=== PATIENT | female | born 1930 | race African-American/Black ===

== ENCOUNTER 2017-08-23 14:44 | Emergency (ER) | payer MEDICARE ==
--- NOTE | 2017-08-23 15:11 | RAD ---
SINGLE VIEW OF CHEST: Date: 08/23/17 COMPARISON: 07/20/11. HISTORY: Chest pain. FINDINGS: Single view of the chest shows normal sized cardiomediastinal silhouette. There is no evidence of con solidation, mass, or pleural effusion. Surgical clips are seen projecting over the right upper chest. IMPRESSION: No evidence of acute cardiopulmonary disease. POS: [facility]
[2017-08-23 15:13] LABS: PTT 23.7 SEC (22.9-36.1); Prothrombin Time 12.9 SEC (12.0-14.7)
[2017-08-23 15:22] LABS: ALT (SGPT) 18 U/L (8-55); AST (SGOT) 26 U/L (5-34); Alkaline Phosphatase 49 U/L (40-150); Anion Gap 17 mmol/L (10-20); BUN (Urea Nitrogen) 17 mg/dL (9.8-20.1); Bilirubin, Total 0.5 mg/dL (0.2-1.2); Calc. Creatinine Clearance 0 mL/min (70-130); Calcium 9.3 mg/dL (7.8-10.44); Carbon Dioxide 26 mmol/L (23-31); Chloride 101 mmol/L (98-107); Estimated GFR-MDRD 52; Globulin 3.4 g/dL (2.4-3.5); Glucose 111 mg/dL (83-110); Potassium 4.9 mmol/L (3.5-5.1); Protein, Total 7.4 g/dL (6.0-8.3); Sodium 139 mmol/L (136-145)
[2017-08-23 15:23] LABS: CKMB 1.6 ng/mL (0-6.6); Troponin I 0.017 ng/mL (< 0.028)
[2017-08-23 15:34] LABS: Mean Corpuscular HGB CONC 31.4 g/dL (32.0-36.0); Mean Corpuscular Hemoglobin 30.4 pg (27.0-31.0); Mean Corpuscular Volume 96.9 fl (81.0-99.0); Mean Platelet Volume 7.4 fL (7.4-10.4); Platelet Count 178 thou/uL (130-400); RBC Distribution Width 14.7 % (11.5-14.5); Red Blood Cell (RBC) Count 4.26 mill/uL (4.20-5.40); White Blood Cell (WBC) Count 6.4 thou/uL (4.8-10.8)
[2017-08-23 15:35] LABS: MDiff Complete? YES; Manual Diff?? YES
[2017-08-23 15:36] LABS: Eosinophils 1 % (0-10); Lymphocytes 9 % (21-51); Monocytes 9 % (0-10); Neutrophil 58 % (42-75); Reactive Lymphocytes 23 % (0-10)
[2017-08-23 15:37] LABS: PLT Morphology Comment Appears Adequate; RBC Morphology Normal
== END 2017-08-23 16:30 | disposition home or self-care (01) ==
LOC: MADERS 14:44
DX: M94.0 Chondrocostal junction syndrome [Tietze] (principal); M06.9 Rheumatoid arthritis, unspecified; R07.89 Other chest pain; K21.9 Gastro-esophageal reflux disease without esophagitis; E11.9 Type 2 diabetes mellitus without complications; I10 Essential (primary) hypertension; M19.90 Unspecified osteoarthritis, unspecified site; Z79.899 Other long term (current) drug therapy
CPT/HCPCS: 71010; 80053; 82553; 84484; 85025; 85610; 85730; 93005; 96372; J1040